=== PATIENT | female | born 1940 | race Caucasian/White ===

== ENCOUNTER 2016-04-06 06:45 | Emergency (ER) | payer MEDICARE, BC ==
[2016-04-06 07:55] VITALS: BP 130/84
--- NOTE | 2016-04-06 08:29 | ERNOTE ---
Date of Service: 04/06/16 Time Seen by Provider: 04/06/16 08:15 Stated Complaint: COLD Presenting Symptoms:: cough Source: patient Exam Limitations: no limitations Allergies/Adverse Reactions: Allergies No Known Allergies Allergy (Verified 04/06/16 07:07) Home Medications: HOME MEDICATIONS Amlodipine Besylate 25 mg PO DAILY 07/18/13 [Last Taken Unknown] Atenolol [Tenormin (Atenolol)] 100 mg PO DAILY 07/18/13 [Last Taken Unknown] Atorvastatin Calcium 20 mg PO DAILY 07/18/13 [Last Taken Unknown] Benzonatate 100 mg PO DAILY 07/18/13 [Last Taken Unknown] Hydrochlorothiazide 25 mg PO DAILY 07/18/13 [Last Taken Unknown] Oxybutynin Chloride 2.5 mg PO BID 07/18/13 [Last Taken Unknown] Aspirin [Aspirin EC] 81 mg PO DAILY 11/26/14 [Last Taken Unknown] Calcium Carbonate [Calcium] 500 mg PO DAILY 11/26/14 [Last Taken Unknown] Azithromycin [Zithromax] 500 mg PO NOW #6 tab 04/06/16 [Last Taken Unknown] Losartan Potassium [Cozaar] 50 mg PO DAILY 04/06/16 [Last Taken Unknown] - History of Present Ilness Narrative: Patient's that have a cough cold for the past 2 weeks. Intermittent in nature. Denies any fever or headache or dizziness. She wanted be seen in the ER because it hasn't gotten any better and he got worse last night. Denies any shortness of breath denies any chest pain denies any headache or dizziness. Date (Duration): 03/23/16 Timing: intermittent Severity: mild Frequency/Possible Cause: Reports: no prior episodes Associated Symptoms: Reports: cough, wheezing. Denies: chest pain/soreness, shortness of breath, nasal congestion, nasal drainage, dizziness, lightheadedness, earache, headache, sore throat, muscle aches, fever/chills Review of Systems - Review of Systems Constitutional: Absent: recent illness, fever, chills, diaphoresis, weakness ENT: Absent: ear discharge, pulling on ears, nose congestion, nasal drainage Respiratory: Present: cough, wheezing - intermittent wheezing/at night. Absent : shortness of breath, orthopnea Cardiology: Absent: chest pain, palpitations, syncope All Other Systems: All systems neg except as marked - Patient's Past Medical History Patient History - Medical: Arthritis Patient History - Cardiac/Respiratory: Hypertension, Hyperlipidemia Patient History - Cancer: Skin Patient History - Surgical Procedures: Cancer Surgery Patient History - Other: None - Social History Living Situations: home Physical Exam - Physical Exam General Appearance: Present: wd/wn, alert, no apparent distress Eye Exam: PERRL: bilateral, EOMI: bilateral Ears, Nose, Throat: Present: normal ENT inspection, hearing grossly normal, normal pharynx Neck: Present: normal inspection, nontender, supple, full range of motion. Absent: lymphadenopathy (L) Respiratory: Present: no respiratory distress, normal breath sounds, no accessory muscle use, chest nontender, lungs clear. Absent: chest tenderness Cardiovascular/Chest: Present: regular rate, rhythm, no murmur, normal peripheral pulses Gastrointestinal/Abdominal: Present: normal bowel sounds, nontender, nondistended, soft, no organomegaly Back Exam: Present: normal inspection, normal range of motion, no CVA tenderness , no vertebral tenderness Extremity Exam: Present: normal inspection ED Progress - Vital Signs Patient's Vital Signs:: I have reviewed the patient's vital signs. Vital Signs: Vital Signs 04/06/16 04/06/16 07:03 07:38 Temperature 36.0 C L Pulse Rate 67 81 Respiratory 12 12 Rate Blood Pressure 144/74 130/84 O2 Sat by Pulse 96 98 Oximetry - Progress/Reassessment Chief Complaint: Upper Respiratory Symptoms Progress:: Improved - Transfer of Care Expected Disposition: Discharge - patient states she's been on Z-Quintin in the past and she's had similar symptoms about this time Departure - Departure Clinical Impression: Bronchitis, Cough, Upper respiratory infection, acute Disposition: Home self-care Condition: Good Print Language: Macedonian Referrals: Claudio Cavazos MD [Primary Care Provider] - Prescriptions: Azithromycin [Zithromax] 500 mg PO NOW #6 tab
== END 2016-04-06 08:30 | disposition home or self-care (01) ==
LOC: ER 06:45
DX: J40 Bronchitis, not specified as acute or chronic (principal); R05 Cough; J06.9 Acute upper respiratory infection, unspecified